=== PATIENT | female | born 1965 | race Caucasian/White ===

== ENCOUNTER → 2016-08-04 | Outpatient (CLI) | payer MEDICAID | LOC: FIMAGING 13:31 | PROVIDERS: ATTEND Family Medicine | DX: Z12.31 Encounter for screening mammogram for malignant neoplasm of breast (principal) | CPT/HCPCS: G0202 ==

== ENCOUNTER → 2016-08-14 | Outpatient (CLI) | payer MEDICAID | LOC: FIMAGING 15:28 | PROVIDERS: ATTEND Family Medicine | DX: Z12.39 Encounter for other screening for malignant neoplasm of breast (principal); R92.8 Other abnormal and inconclusive findings on diagnostic imaging of breast ==

== ENCOUNTER 2016-09-11 06:03 | Day surgery (SDC) | payer MEDICAID ==
[2016-09-11] MEDS ORDERED: LIDOCAINE 1% 2 ML INJ ID PRN (06:34)
[2016-09-11] MEDS ORDERED: LR 1,000 ML IV ONE (06:34)
--- NOTE | 2016-09-11 07:14 | PDHPUP ---
History & Physical Update H&P update statement: This history and physical update is based on an assessment of the patient which was completed after admission or registration (within 24 hours), but prior to the surgery/procedure. H&P update: no change in patient's condition since H&P completed
[2016-09-11] MEDS ORDERED: MIDAZOLAM 2 MG/2 ML VIAL IVP ONE (07:21)
[2016-09-11] MEDS ORDERED: MIDAZOLAM 2 MG/2 ML VIAL ONE (07:26)
[2016-09-11] MEDS ORDERED: PROPOFOL/EMULSION 500 MG/50 ML BOTTLE IV ONE (07:26)
[2016-09-11] MEDS ORDERED: KETAMINE 100 MG/10 ML SYR ONE (07:27)
--- NOTE | 2016-09-11 07:42 | PDANEPAE ---
ANE History of Present Illness Patient presents for EGD ANE Past Medical History - Cardiovascular History Hx Hypertension: No Hx Arrhythmias: No Hx Chest Pain: No Hx Coronary Artery / Peripheral Vascular Disease: No Hx CHF / Valvular Disease: No Hx Palpitations: No - Pulmonary History Hx COPD: Yes Hx Asthma/Reactive Airway Disease: No Hx Recent Upper Respiratory Infection: No Hx Oxygen in Use at Home: No - Neurologic History Hx Cerebrovascular Accident: No Hx Seizures: No Hx Dementia: No - Endocrine History Hx Diabetes: No - Renal History Hx Renal Disorders: No - Liver History Hx Hepatic Disorders: No - Neurological & Psychiatric Hx Hx Neurological and Psychiatric Disorders: No - Cancer History Hx Cancer: No - Congenital Disorder History Hx Congenital Disorders: No - GI History Hx Gastrointestinal Disorders: Yes - Chronic Pain History Chronic Pain: No ANE Review of Systems - Exercise capacity Exercise capacity: >=4 METS METS (RN): 4 METS ANE Patient History - Allergies Allergies/Adverse Reactions: ambrisentan [From [employer]] Allergy (Verified 08/28/16 11:40) - Home Medications Home Medications: ADCIRCA DAILY AT 10AM 08/28/16 [Last Taken 09/10/16 06:00] Pantoprazole Sodium DAILY AT 6AM 08/28/16 [Last Taken 09/10/16 06:00] Spiriva Inhaler (RX) DAILY 08/28/16 [Last Taken 09/10/16 06:00] ZOLPIDEM TARTRATE HS 08/28/16 [Last Taken 09/10/16] LORAZEPAM 2 mg PRN 09/11/16 [Last Taken 09/10/16] - NPO status NPO Since - Liquids (Date): 09/10/16 NPO Since - Liquids (Time): 23:30 NPO Since - Solids (Date): 09/11/16 NPO Since - Solids (Time): 21:00 - Smoking Hx Smoking Status: Former smoker - Family Anes Hx Family Hx Anesthesia Complications: NEG ANE Labs/Vital Signs - Vital Signs Blood Pressure: 108/71 Heart Rate: 62 Respiratory Rate: 16 O2 Sat (%): 92 Height: 167.64 cm Weight: 93.894 kg ANE Physical Exam - Airway Neck exam: FROM Mallampati Score: Class 2 Mouth exam: normal dental/mouth exam - Pulmonary Pulmonary: no respiratory distress - Cardiovascular Cardiovascular: regular rate and rhythym - ASA Status ASA Status: III ANE Anesthesia Plan Anesthesia Plan: GA with mask (rba discussed)
[2016-09-11] MEDS ORDERED: ONDANSETRON 4 MG/2 ML VIAL IVP PRN (07:43)
[2016-09-11] MEDS ORDERED: NALOXONE HCL 0.4 MG/ML INJ IVP PRN (07:43)
[2016-09-11] MEDS ORDERED: fentaNYL 100 MCG/2 ML INJ IVP PRN (07:43)
--- NOTE | 2016-09-11 07:50 | POSTOPPROG ---
Post Op Note Date of Operation: 09/11/16 Surgeon: Bird Martinez Anesthesia: Other (Specify) (General without intubation) Pre-op Diagnosis: dysphagia, GERD Post-op Diagnosis: gastritis Indication: dysphagia, gerd Procedure: EGD Findings: minimal esophagitis, biopsied mid esoph, dilated 20mm esoph, biop gastritis Inf/Abcess present in the surg proc area at time of surgery?: No EBL: Minimal (none)
--- NOTE | 2016-09-11 07:56 | POSTANESTH ---
Post Anesthetic Evaluation Cardiovascular Status: Normal, Stable Respiratory Status: Normal, Stable Level of Consciousness/Mental Status: Can Participate in Eval, Alert and Oriented Pain Control: Adequate, Prn Tx Ordered Nausea/Vomiting Control: Adequate, Prn Tx Ordered Complications Possibly Related to Anesthesia: None Noted
[2016-09-11 08:17] VITALS: TEMP 97.5
[2016-09-11 08:48] VITALS: RESP 16
[2016-09-11 09:05] VITALS: BP 106/78; PULSE 72; O2SAT 92
--- NOTE | 2016-09-11 13:13 | GPN ---
[f rep st] PROCEDURE NOTE DATE OF PROCEDURE: 09/11/2016 PROCEDURE: Esophagogastroduodenoscopy with dilation and biopsy. INDICATIONS: Dysphagia, GERD. CONSENT: Informed consent was obtained from the patient after a full estimation of risks, benefits, and alternatives to the procedure. MEDICATIONS GIVEN: Per Anesthesia. DESCRIPTION OF EXAMINATION: After adequate sedation was achieved, the endoscope was advanced under direct vision through the mouth, esophagus, and as far as the second portion of the duodenum. These were obtained, and retroflexion was performed in the stomach. ESTIMATED BLOOD LOSS: None. COMPLICATIONS: None immediate. FINDINGS: 1. Esophagus: Normal appearing esophagus with normal GE junction and [place] grade A/minimal r eflux esophagitis in 1 small focal spot. Random biopsies were taken from the mid esophagus to rule out eosinophilic esophagitis. A 20 mm balloon was inflated and used to dilate the distal, proximal, and mid esophagus without a significant tear or other visible impact. 2. Stomach: Mild gastritis in the antrum and body with minimal erythema. Biopsies were taken from the antrum and body to assess for etiology of gastritis and rule out H pylori. Two small gastric p olyps were seen in the body and were biopsied. These appeared most consistent visually with fundic gland polyps. 3. Duodenum: The duodenal bulb and second portion of the duodenum were normal. IMPRESSION: 1. No etiology of dysphagia was seen although biopsies were taken in the mid esophagus for Eosinoph ilic esophagitis and empiric dilation was performed throughout the esophagus with a 20 mm balloon. 2. Mild gastritis which was biopsied along with gastric polyps which were biopsied. RECOMMENDATIONS: 1. Follow up with Tricia Siu will be arranged. 2. Resume regular diet. Discharge instructions will be given to the patient prior to discharge manuel e. 3. Continue current medications. 4. We will follow up on biopsy results and call the patient with these results. Thank you very much for allowing me to participate in the care of this very pleasant patient. /[id number]/MODL
== END 2016-09-11 09:00 | disposition home or self-care (01) ==
LOC: FSGY 06:03
PROVIDERS: ATTEND Internal Medicine
PROC: 0DB68ZX Excision of Stomach, Via Natural or Artificial Opening Endoscopic, Diagnostic (ICD-10-PCS; principal; 2016-09-11 07:30)
PROC: 0D738ZZ Dilation of Lower Esophagus, Via Natural or Artificial Opening Endoscopic (ICD-10-PCS; principal; 2016-09-11 07:30)
PROC: 0D728ZZ Dilation of Middle Esophagus, Via Natural or Artificial Opening Endoscopic (ICD-10-PCS; principal; 2016-09-11 07:30)
PROC: 0DB28ZX Excision of Middle Esophagus, Via Natural or Artificial Opening Endoscopic, Diagnostic (ICD-10-PCS; principal; 2016-09-11 07:30)
PROC: 0D718ZZ Dilation of Upper Esophagus, Via Natural or Artificial Opening Endoscopic (ICD-10-PCS; principal; 2016-09-11 07:30)
DX: K29.70 Gastritis, unspecified, without bleeding (principal); R13.10 Dysphagia, unspecified; K21.9 Gastro-esophageal reflux disease without esophagitis
CPT/HCPCS: 43239; 43249; C1726; J2250; J2704

== ENCOUNTER 2017-03-14 09:54 | Emergency (ER) | payer MEDICAID ==
[2017-03-14 09:59] VITALS: RESP 18
--- NOTE | 2017-03-14 10:23 | EDPHY ---
H & P Time Seen by Provider: 03/14/17 10:04 HPI/ROS: Chief complaint. Dizzy, ears ringing HPI. 51-year-old female presents emergency department with 3 day history of fever, dizziness especially on standing. She has had cough productive yellow sputum. Headache that is worse with cough. Congestion and fullness to ears. Some ringing in her ears. Slight sore throat. Spouse had same symptoms last week. History of pulmonary hypertension and family is concerned about her hypertension. No flu shot. No other foreign travel ROS Constitutional. Fever Eyes. no problems with vision ENT. Sore throat and congestion Cardiovascular. no chest pain Respiratory. Cough Abdominal. no abdominal pain, no nausea/vomiting, no diarrhea . no problems urinating MS. no calf pain/swelling, no neck/back pain, no joint pain Skin. no rash Lymph. no swollen glands Neuro. Dizziness on standing Past Medical/Surgical History: Pulmonary hypertension Social History: , nonsmoker, no alcohol Smoking Status: Former smoker Physical Exam: General Appearance: Alert well-developed female moderate distress vital signs are stable Eyes: Pupils equal and round no pallor or injection. ENT, tympanic membranes are normal. Pharynx slightly injected without exudate. Mucous membranes are moist. Respiratory: No retractions mild inspiratory expiratory rhonchi Cardiovascular: Regular rate and rhythm. Gastrointestinal: Abdomen is soft and nontender, no masses, bowel sounds normal. Neurological: Awake and alert, sensory and motor exams grossly normal. Skin: Warm and dry, no rashes. Musculoskeletal: Neck is supple nontender. Extremities symmetrical, full range of motion. Psychiatric: Patient is oriented X 3, there is no agitation. Constitutional: Initial Vital Signs Temperature (C) 37.2 C 03/14/17 09:57 Heart Rate 75 03/14/17 09:57 Respiratory Rate 18 03/14/17 09:57 Blood Pressure 104/62 03/14/17 09:57 O2 Sat (%) 94 03/14/17 09:57 O2 Delivery Mode Room Air Allergies/Adverse Reactions: ambrisentan [From [employer]] Allergy (Verified 08/28/16 11:40) Home Medications: Medication Instructions Recorded ADCIRCA DAILY AT 10AM 08/28/16 Pantoprazole Sodium DAILY AT 6AM 08/28/16 Spiriva Inhaler (RX) DAILY 08/28/16 ZOLPIDEM TARTRATE HS 08/28/16 LORAZEPAM 2 mg PRN 09/11/16 Hydrocodone/APAP 5/325 [Maupin 1 each PO Q4-6PRN PRN #14 tab 03/14/17 5/325 (*)] Medical Decision Making - Diagnostics Imaging Results: Imaging Impressions Chest X-Ray 03/14/17 10:35 Impression: Negative. No pneumonia. Chest x-ray reviewed by me is normal. No pneumonia Procedures: IV normal saline. Morphine for pain. Toradol IV ED Course/Re-evaluation: Re-evaluation 11:40 a.m.. Patient is stable she is somewhat feeling better. The patient and I discussed imaging and lab results. We discussed treatment plan including criteria for return importance of follow-up and further evaluation. She expresses understanding and agreement We discussed now that she has been symptomatic for 3 days and she is really out of the window for treatment with Tamiflu Differential Diagnosis: I considered pneumonia, viral syndrome, influenza - Data Points Laboratory Results: Laboratory Results 03/14/17 10:14 03/14/17 10:14 03/14/17 03/14/17 03/14/17 10:52 10:14 10:14 WBC RBC Hgb Hct MCV MCH MCHC RDW Plt Count MPV Neut % (Auto) Lymph % (Auto) Nicholas % (Auto) Eos % (Auto) Baso % (Auto) Nucleat RBC Rel Count Absolute Neuts (auto) Absolute Lymphs (auto) Absolute Monos (auto) Absolute Eos (auto) Absolute Basos (auto) Absolute Nucleated RBC Immature Gran % Immature Gran # D-Dimer Pending Sodium 136 mEq/L mEq/L (134-144) Potassium 4.0 mEq/L mEq/L (3.5-5.2) Chloride 101 mEq/L mEq/L (97-110) Carbon Dioxide 26 mEq/l mEq/l (22-31) Anion Gap 9 mEq/L mEq/L (8-16) BUN 10 mg/dL mg/dL (7-23) Creatinine 1.0 mg/dL mg/dL (0.6-1.0) Estimated GFR 59 Glucose 95 mg/dL mg/dL (70-100) Calcium 8.8 mg/dL mg/dL (8.5-10.4) Troponin I < 0.012 ng/mL ng/mL (0.000-0.034) Nasal Influenza A PCR FLU A DETECTED (NEGATIVE) Nasal Influenza B PCR NEGATIVE FOR FLU B (NEGATIVE) 03/14/17 10:14 WBC 3.82 10^3/uL 10^3/uL (3.80-9.50) RBC 4.34 10^6/uL 10^6/uL (4.18-5.33) Hgb 13.1 g/dL g/dL (12.6-16.3) Hct 38.2 % % (38.0-47.0) MCV 88.0 fL fL (81.5-99.8) MCH 30.2 pg pg (27.9-34.1) MCHC 34.3 g/dL g/dL (32.4-36.7) RDW 12.1 % % (11.5-15.2) Plt Count 148 10^3/uL L 10^3/uL (150-400) MPV 10.0 fL fL (8.7-11.7) Neut % (Auto) 57.3 % % (39.3-74.2) Lymph % (Auto) 27.2 % % (15.0-45.0) Nicholas % (Auto) 14.1 % H % (4.5-13.0) Eos % (Auto) 0.8 % % (0.6-7.6) Baso % (Auto) 0.3 % % (0.3-1.7) Nucleat RBC Rel Count 0.0 % % (0.0-0.2) Absolute Neuts (auto) 2.19 10^3/uL 10^3/uL (1.70-6.50) Absolute Lymphs (auto) 1.04 10^3/uL 10^3/uL (1.00-3.00) Absolute Monos (auto) 0.54 10^3/uL 10^3/uL (0.30-0.80) Absolute Eos (auto) 0.03 10^3/uL 10^3/uL (0.03-0.40) Absolute Basos (auto) 0.01 10^3/uL L 10^3/uL (0.02-0.10) Absolute Nucleated RBC 0.00 10^3/uL 10^3/uL (0-0.01) Immature Gran % 0.3 % % (0.0-1.1) Immature Gran # 0.01 10^3/uL 10^3/uL (0.00-0.10) D-Dimer Sodium Potassium Chloride Carbon Dioxide Anion Gap BUN Creatinine Estimated GFR Glucose Calcium Troponin I Nasal Influenza A PCR Nasal Influenza B PCR Medications Given: Morphine Sulfate (Morphine) 6 mg IVP Q1H PRN PRN Reason: Pain, Severe Unable to Take PO Last Admin: 03/14/17 11:31 Dose: 6 mg Discontinued Medications Sodium Chloride (Ns) 1,000 mls @ 0 mls/hr IV ONCE ONE; Wide Open PRN Reason: Protocol Stop: 03/14/17 10:36 Last Admin: 03/14/17 10:45 Dose: 1,000 mls Ketorolac Tromethamine (Toradol) 30 mg IVP EDNOW ONE Stop: 03/14/17 10:39 Last Admin: 03/14/17 10:44 Dose: 30 mg Ondansetron HCl (Zofran) 4 mg IVP EDNOW ONE Stop: 03/14/17 10:39 Last Admin: 03/14/17 10:44 Dose: 4 mg Departure - Departure Disposition: Home, Routine, Self-Care Clinical Impression: Influenza Condition: Good Instructions: Influenza (ED) Additional Instructions: Ibuprofen 600 mg every 6 hr. Hydrocodone in addition for every 6 hr to help with cough and achiness. Drink plenty of fluids and stay hydrated. Return for worsening symptoms. Referrals: Tricia Ferrell DO [Primary Care Provider] - 3-4 days, if not improved Prescriptions: Hydrocodone/APAP 5/325 [Maupin 5/325 (*)] 1 each PO Q4-6PRN PRN #14 tab PRN Reason: Pain, Moderate
[2017-03-14] MEDS ORDERED: NS 1,000 ML IV ONE (10:35)
[2017-03-14] MEDS ORDERED: ONDANSETRON 4 MG/2 ML VIAL IVP ONE (10:38)
[2017-03-14] MEDS ORDERED: KETOROLAC 30 MG/1 ML SDV IVP ONE (10:38)
[2017-03-14 10:42] LABS: PLATELET COUNT 148 10^3/uL (150-400)
[2017-03-14 12:23] VITALS: BP 92/61; PULSE 56; TEMP 98.1; O2SAT 93
== END 2017-03-14 12:30 | disposition home or self-care (01) ==
DX: J11.1 Influenza due to unidentified influenza virus with other respiratory manifestations (principal); E86.9 Volume depletion, unspecified; Z87.891 Personal history of nicotine dependence
CPT/HCPCS: 96374; J1885; J2405